=== PATIENT | female | born 1975 | race Caucasian/White ===

== ENCOUNTER 2017-02-25 11:08 | Emergency (ER) | payer MEDICAID ==
[2017-02-25 11:49] VITALS: BP 125/75
== END 2017-02-25 11:49 | disposition home or self-care (01) ==
LOC: ED 11:08
DX: J20.9 Acute bronchitis, unspecified (principal); H92.01 Otalgia, right ear; J02.9 Acute pharyngitis, unspecified
CPT/HCPCS: J7613; J7644

== ENCOUNTER 2017-03-12 17:20 | Emergency (ER) | payer MEDICAID ==
[2017-03-12 18:05] VITALS: BP 134/70
== END 2017-03-12 18:05 | disposition home or self-care (01) ==
LOC: ED 17:20
DX: J02.9 Acute pharyngitis, unspecified (principal); R07.89 Other chest pain

== ENCOUNTER 2017-05-23 12:33 | Emergency (ER) | payer MEDICAID ==
[~2017-05-23] VITALS: Ht 167.6 cm; Wt 69.0 kg
[2017-05-23 12:46] VITALS: BP 126/84
== END 2017-05-23 14:11 | disposition home or self-care (01) ==
LOC: ED 12:33
DX: M25.775 Osteophyte, left foot (principal)

== ENCOUNTER 2018-01-20 10:29 | Emergency (ER) | payer MEDICAID ==
[~2018-01-20] VITALS: Ht 162.6 cm; Wt 67.1 kg
[2018-01-20 13:01] VITALS: BP 116/67
== END 2018-01-20 13:01 | disposition home or self-care (01) ==
LOC: ED 10:29
DX: J06.9 Acute upper respiratory infection, unspecified (principal); M79.1 Myalgia

== ENCOUNTER 2018-10-24 15:20 | Emergency (ER) | payer MEDICAID ==
[~2018-10-24] VITALS: Ht 154.9 cm; Wt 67.1 kg
[2018-10-24 15:39] VITALS: Ht 154.9 cm; Wt 67.1 kg
[2018-10-24 18:30] VITALS: BP 112/68
== END 2018-10-24 17:58 | disposition home or self-care (01) ==
LOC: ED 15:20
DX: J40 Bronchitis, not specified as acute or chronic (principal)
CPT/HCPCS: Q0092

== ENCOUNTER 2018-10-25 06:48 | Emergency (ER) | payer MEDICAID ==
[~2018-10-25] VITALS: Ht 165.1 cm; Wt 66.8 kg
[2018-10-25 06:57] VITALS: BP 116/47; Ht 165.1 cm; Wt 66.8 kg
== END 2018-10-25 08:32 | disposition home or self-care (01) ==
LOC: ED 06:48
DX: J20.8 Acute bronchitis due to other specified organisms (principal)
CPT/HCPCS: J7613

== ENCOUNTER 2019-10-26 11:50 | Emergency (ER) | payer MEDICAID ==
[~2019-10-26] VITALS: Ht 162.6 cm; Wt 70.3 kg
[2019-10-26 12:16] VITALS: BP 136/61; Ht 162.6 cm; Wt 70.3 kg
== END 2019-10-26 13:05 | disposition home or self-care (01) ==
LOC: ED 11:50
DX: N39.0 Urinary tract infection, site not specified (principal); R03.0 Elevated blood-pressure reading, without diagnosis of hypertension

== ENCOUNTER 2019-12-07 06:31 | Emergency (ER) | payer MEDICAID ==
[~2019-12-07] VITALS: Ht 167.6 cm; Wt 71.7 kg
[2019-12-07 06:44] VITALS: Ht 167.6 cm; Wt 71.7 kg
[2019-12-07 07:43] VITALS: BP 120/81
[2019-12-07 08:39] LABS: UA SPECIFIC GRAVITY <=1.005 (1.005-1.035); microscopic required? YES; urine erythrocyte 1+ (NEGATIVE)
== END 2019-12-07 07:43 | disposition home or self-care (01) ==
LOC: ED 06:31
PROVIDERS: Emergency Medicine
DX: R30.0 Dysuria (principal); R31.9 Hematuria, unspecified

== ENCOUNTER 2020-04-11 11:30 | Emergency (ER) | payer MEDICAID, SELFPAY ==
[~2020-04-11] VITALS: Ht 152.4 cm; Wt 70.3 kg
[2020-04-11 11:56] VITALS: Ht 152.4 cm; Wt 70.3 kg
[2020-04-11 12:52] VITALS: BP 152/83
== END 2020-04-11 12:52 | disposition home or self-care (01) ==
LOC: ED 11:30
DX: U07.1 COVID-19 (principal); J02.9 Acute pharyngitis, unspecified
CPT/HCPCS: U0003-CS

== ENCOUNTER 2020-04-30 13:30 | Emergency (ER) | payer MEDICAID, SELFPAY ==
[~2020-04-30] VITALS: Ht 167.6 cm; Wt 68.5 kg
[2020-04-30 13:55] VITALS: BP 143/88; Ht 167.6 cm; Wt 68.5 kg
== END 2020-04-30 15:55 | disposition home or self-care (01) ==
LOC: ED 13:30
DX: U07.1 COVID-19 (principal); F41.9 Anxiety disorder, unspecified; G89.29 Other chronic pain; M54.9 Dorsalgia, unspecified; R05 Cough

== ENCOUNTER 2020-05-23 16:43 | Emergency (ER) | payer MEDICAID, SELFPAY ==
[~2020-05-23] VITALS: Ht 157.5 cm; Wt 70.3 kg
[2020-05-23 16:47] VITALS: Ht 157.5 cm; Wt 70.3 kg
[2020-05-23 17:25] VITALS: BP 121/75
== END 2020-05-23 17:25 | disposition home or self-care (01) ==
LOC: ED 16:43
DX: J02.9 Acute pharyngitis, unspecified (principal); Z20.828 Contact with and (suspected) exposure to other viral communicable diseases
CPT/HCPCS: U0003-CS